=== PATIENT | female | born 2000 | race Two or more races ===

== ENCOUNTER 2023-01-14 08:31 | Outpatient (CLI) | payer OTHER | END 2023-01-14 08:33 | disposition home or self-care (01) | LOC: SONOGRAMA 08:31 | DX: N64.4 Mastodynia (principal); N63.32 Unspecified lump in axillary tail of the left breast; N63.10 Unspecified lump in the right breast, unspecified quadrant; N60.99 Unspecified benign mammary dysplasia of unspecified breast ==